=== PATIENT | female | born 1960 | race Caucasian/White ===

== ENCOUNTER 2016-08-03 06:24 | Day surgery (SDC) | payer BC ==
[2016-07-31 09:39] LABS: HEMATOCRIT 40.2 % (36.0-48.0); HEMOGLOBIN 13.6 g/dL (12.0-16.0)
--- NOTE | ~2016-08-03 | OP ---
Record Of Operation [facility] [address] [place]. [address] NAME: JOELLE SWANN : 60 STATUS : REG [facility] [place] PAT#: [id number] AGE: 56 ADM/REG DATE : 08/03/16 MR#: [id number] REPORT SERV DATE: 08/03/16 DICTATED BY: Neto COLE DATE: 08/03/16 REPORT STATUS : Draft TRANSCRIBED BY: MODL DATE: 08/03/16 DATE OF PROCEDURE: 08/03/2016 PREOPERATIVE DIAGNOSIS: Gross hematuria with inflammatory urethral polyps. POSTOPERATIVE DIAGNOSIS: Gross hematuria with inflammatory urethral polyps. PROCEDURE: Cystoscopy, bilateral retrograde pyelography, urethral biopsy, fulguration, examination under anesthesia. SURGEON: Neto Cole M.D. ANESTHESIA: General with LMA. COMPLICATIONS: None. DRAINS: 20-[place] two-way Lopez catheter. BRIEF HISTORY: Ms. Swann is a 56-year-old white female, who I have seen recently for gross hematuria. Cultures were negative as was in an upper tract study. Cystoscopy in the office showed bleeding which appeared to emanate from the area of her proximal urethra. She did have some small inflammatory polyps. I offered her biopsy with fulguration. I discussed risks of bleeding, infection, anesthesia, recurrent bleeding, need for postoperative catheterization, etc. There were no unanswered questions. DESCRIPTION OF PROCEDURE: Under excellent general anesthesia, the patient was prepped and draped in standard lithotomy position. Bimanual exam revealed a mobile cervix with a normal anterior vaginal wall. Her urethral meatus had what appeared to be some skin tags on the right side that were really part of the vaginal mucosa. I did not see any lesions. Palpation of the urethra revealed a mobile non indurated urethra. Cystoscopy was performed with the 30 and 70 degree lens, revealed some inflammatory type polyps at the vesical neck. The bladder was otherwise normal without tumors, stones, or foreign bodies. The orifices were effluxing clear urine. An 8-[place] cone-tipped catheter was used to perform a left retrograde pyelogram. It showed a normal caliber ureter without filling defect or obstruction and good drainage. Similarly, the right ureter was seen and showed a normal caliber ureter without filling defect or obstruction and good drainage. I biopsied two small polypoid looking areas in her [id number] urethra and then fulgurated any abnormal appearing tissue especially in the proximal urethra. Bleeding appeared controlled. I inserted a 20-[place] two-way Lopez catheter and plan to discharge Mrs. Swann as an outpatient with the following instructions. DISCHARGE INSTRUCTIONS: 1. Home today with Lopez catheter. I prefer to have it in until 08/05/2016, and she can either remove it at home or in my office. 2. Percocet 5/325 one to two p.o. q.4 hours p.r.n. pain #15. 3. Pyridium 200 mg one p.o. t.i.d. p.r.n. bladder pain, #15 with three refills. Record Of Operation [address] [place]. [address] NAME: JOELLE SWANN : 60 STATUS : REG [facility] [place] PAT#: [id number] AGE: 56 ADM/REG DATE : 08/03/16 MR#: [id number] REPORT SERV DATE: 08/03/16 DICTATED BY: Neto COLE DATE: 08/03/16 REPORT STATUS : Draft TRANSCRIBED BY: KEMI DATE: 08/03/16 4. Follow up in my office in one month to review symptoms sooner p.r.n. ANNETTA/KEMI Neto Cole M.D. / [id number] CC: Raciel Schmidt MICHAEL John Shull, M.D.
[~2016-08-03 06:24] MED LIST: FISH-EPA1000 MG PO; LOP50 PO; PAX10 PO
== END 2016-08-03 11:06 | disposition home or self-care (01) ==
LOC: SDC 06:24
PROC: 0TBB8ZX Excision of Bladder, Via Natural or Artificial Opening Endoscopic, Diagnostic (ICD-10-PCS; 2016-08-03)
PROC: 0TBB8ZX Excision of Bladder, Via Natural or Artificial Opening Endoscopic, Diagnostic (ICD-10-PCS; 2016-08-03)
PROC: 0T5D8ZZ Destruction of Urethra, Via Natural or Artificial Opening Endoscopic (ICD-10-PCS; 2016-08-03)
PROC: 0TBD8ZX Excision of Urethra, Via Natural or Artificial Opening Endoscopic, Diagnostic (ICD-10-PCS; 2016-08-03)
PROC: 0T5B8ZZ Destruction of Bladder, Via Natural or Artificial Opening Endoscopic (ICD-10-PCS; principal; 2016-08-03 07:45)
DX: N34.2 Other urethritis (principal); N36.8 Other specified disorders of urethra; Z87.891 Personal history of nicotine dependence; Z87.442 Personal history of urinary calculi; Z79.899 Other long term (current) drug therapy; Z98.890 Other specified postprocedural states
CPT/HCPCS: 74420; 85014; 85018; 88305; 88312; 88341; 88342; 93005; A9270-GY; C1758; J2250; J2405; J3010; Q9967